=== PATIENT | female | born 1950 | race Caucasian/White ===

== ENCOUNTER 2021-11-14 17:48 | Emergency (ER) | payer OTHER, SELFPAY ==
--- NOTE | 2021-11-14 18:02 | DI.RAD.S_ITS ---
PROCEDURE: XR WRIST RT MIN 3V INDICATIONS: fall TECHNIQUE: 3 views of the wrist were acquired. COMPARISON: None. FINDINGS: Bones: Fracture of the distal radius with dorsal angulation. There is articular surface involvement. The 1st carpometacarpal joint and triscaphe joint have degenerative changes consistent with osteoarthritis. Soft tissues: No suspicious soft tissue calcifications. IMPRESSION: 1. Distal radius fracture with dorsal angulation and articular surface involvement. 2. Degenerative changes consistent with osteoarthritis. Dictated by: Delonte Nath M.D. on 11/14/2021 at 18:25 Approved by: Delonte Nath M.D. on 11/14/2021 at 18:27
[2021-11-14 18:44] LABS: COVID19 -Nasal RAPID Negative (Negative)
--- NOTE | 2021-11-14 18:48 | ED.GENADULT ---
HPI - General Adult General Chief complaint: Extremity Injury, Upper Stated complaint: Right Wrist Break Time Seen by Provider: 11/14/21 18:45 Source: patient Mode of arrival: Ambulatory History of Present Illness HPI narrative: 70-year-old woman with a history of hypothyroidism, anxiety, reflux who was trying to fix her curtain stepped on the package of her couch in the couch tipped over. She caught her fall with her right hand and has a deformity to the right wrist. She is neurovascularly intact. She states that she probably did bump her head but has no pain or contusion to the area. No neck pain and she is not on any blood thinners. She has no other complaints at this time. Related Data Home Medications Medication Instructions Recorded Confirmed ASPIRIN (Aspirin Low Dose) 81 mg Q DAY #0 11/21/09 LEVOTHYROXINE SODIUM (Synthroid) 137 mcg PO #0 11/21/09 [A MUSCLE RELAXER ] #0 11/21/09 [RELFLUX MED] Q DAY #0 11/21/09 [SIMVASTATIN] HS #0 11/21/09 Previous Rx's Medication Instructions Recorded oxycodone-acetaminophen 5 mg-325 1 tab PO Q6H PRN #14 tab 11/14/21 mg tablet (Percocet) Allergies Allergy/AdvReac Type Severity Reaction Status Date / Time Sulfa (Sulfonamide Allergy Verified 11/14/21 19:20 Antibiotics) Review of Systems Review of Systems Narrative: Pertinent positive and negative findings as per HPI Remainder of review of systems is otherwise unremarkable for Constitutional: Fevers, chills, weakness ENT: No sore throat, neck pain, ear pain CV: Chest pain, palpitations, Respiratory: Cough, wheeze, dyspnea GI: Nausea, vomiting, diarrhea, : Dysuria, hematuria, Patient History Medical History (Updated 11/14/21 @ 21:33 by Amarilys Joyce MD) Acid reflux Anxiety Hypothyroid Exam Initial Vital Signs Initial Vital Signs: General: Alert appropriate in no acute distress HEENT: Head is atraumatic, normocephalic. No neck tenderness to palpation Respiratory: Able to speak in full sentences, no obvious respiratory distress Skin: No obvious rashes, warm and dry Neurologic: Grossly intact no obvious asymmetries or abnormalities Psych: appropriate insight and affect, cooperative Extremity: Right wrist with obvious deformity she is neurovascularly intact distally. Full range of motion without tenderness at the elbow and shoulder. No other extremity abnormalities appreciated Procedures Orthopedic Fracture Reduction Right wrist: Time of procedure: 21:27 Side: right Fracture Reduction Location: radius Analgesia: hematoma block Technique: direct manipulation and traction/counter-traction Post Reduction X-rays Demonstrate: acceptable reduction Post-reduction neuro exam: other (Fingers numb after the hematoma block. She is able to move all fingers) Post-reduction vascular exam: intact Splint Applied: Yes Patient Tolerated Procedure: Well Orthopedic Splinting/Casting Right wrist: Time of procedure: 21:28 Side: right Upper Extremity Injury Location: wrist Upper Extremity Immobilizer: volar splint Other Orthopedic Equipment: other (Sling) Post splinting neuro exam: other (Numb from anesthetic) Post splinting vascular exam: intact Placed by: Provider Course Orders Ordered: ED Orders 11/14/21 18:02 XR wrist RT min 3V Stat 11/14/21 18:19 COVID19 -Nasal RAPID/Pre-Proc Stat 11/14/21 20:58 XR wrist RT 2V Stat Discontinued Medications Ibuprofen (Ibuprofen 400 Mg Tablet) 400 mg PO NOW ONE Stop: 11/14/21 19:11 Last Admin: 11/14/21 19:21 Dose: 400 mg Documented by: IRASEMA Lidocaine/Sodium Bicarbonate (Lido 1%/Sod Bicarb 8.4% (10ml) 10 Ml Syringe) 10 ml INJ NOW ONE Stop: 11/14/21 19:11 Last Admin: 11/14/21 19:21 Dose: 10 ml Documented by: IRASEMA Oxycodone/Acetaminophen (Oxycodone/Acetaminophen 5/325 Tablet) 1 tab PO NOW ONE Stop: 11/14/21 19:11 Last Admin: 11/14/21 19:21 Dose: 1 tab Documented by: IRASEMA Oxycodone/Acetaminophen (Oxycodone/Apap 5/325 Prepack) 1 bottle MISC SEEINSTR ONE Stop: 11/14/21 19:11 Last Admin: 11/14/21 19:21 Dose: 1 bottle Documented by: IRASEMA Medical Decision Making Lab Data Labs: Lab Results 11/14/21 Range/Units 18:19 SARS-CoV-2 (PCR) Negative (Negative) Imaging Data Pre and post reduction wrist x-ray: Radiologist's Impression: FINDINGS:? ? Bones:? Fracture of the distal radius with dorsal angulation.? There is articular surface involvement.? The 1st carpometacarpal joint and triscaphe joint have degenerative changes consistent with osteoarthritis. ? Soft tissues:? No suspicious soft tissue calcifications.? ? IMPRESSION:? ? 1. Distal radius fracture with dorsal angulation and articular surface involvement. 2. Degenerative changes consistent with osteoarthritis.? ? Dictated by: Delonte Nath M.D. on 11/14/2021 at 18:25 ? ? FINDINGS:? ? Bones:? There is an external splint limiting evaluation of fine bony detail.? There is improved alignment status post closed reduction of the previously visualized comminuted distal radius fracture extending to the radiocarpal and distal radioulnar joints.? There is decreased but persistent minimal dorsal angulation.? Moderate degeneration demonstrated at the 1st carpometacarpal and triscaphe joints. ? Soft tissues:? External splint limits evaluation of the soft tissues. ? IMPRESSION:? ? 1. Improved alignment status post closed reduction of comminuted distal radius intra-articular fracture.? ? ? Dictated by: Taurus Mosquera M.D. on 11/14/2021 at 21:19 ? ? MDM Narrative Medical decision making narrative: 70-year-old woman who was adjusting her blinds standing on the back the couch, couch to [place], she landed on her right wrist and suffered distal radius fracture that has been partially reduced and splinted. She will need orthopedic follow-up and likely will need surgical intervention. All of this is explain to her. She is placed in a splint. Pain was nicely controlled after the hematoma block. Likely will need narcotic for pain control for the 1st couple of days. She is able to take ibuprofen. She is a [facility] patient and would like to follow-up with her [facility] orthopedic doctor in [place]. She is given a disc to with her pre and postreduction films. At this point she is safe for discharge Discharge Plan Departure Patient Disposition: Home Clinical Impression: Fracture of wrist Instructions: DI for Distal Radius Fracture Activity Restrictions/Additional Instructions: Thank you for coming in today You did break your wrist. We use some local anesthetic at the fracture site itself and then adjusted the bones. The fracture looks better but still will need follow-up with an orthopedic surgeon. You may need surgery on this. Please keep the splint in place. The sling can be helpful with pain control and immobilization as well. Using 400 mg of ibuprofen (2 [id number] pills) and 1 Tylenol every 6 hours can be very helpful in controlling pain. For severe pain using 400 mg of ibuprofen and 1 Percocet is helpful. Percocet is a narcotic and will cause constipation. Please make sure you are not driving or making important decisions while taking this. It makes sense to add extra water as well as a stool softener or extra fiber while you are using this medication as well You are welcome to follow-up with the orthopedic doctor of choice. You will need to call and schedule an appointment and explained that you have a comminuted distal radius intra-articular fracture. If you prefer to follow-up with 1 of her local physicians, please contact [facility] at [phone]. If you have worsening pain or new symptoms, please feel free to return to the emergency department Prescriptions: New oxycodone-acetaminophen [Percocet] 5-325 mg tablet 1 tab PO Q6H PRN (Reason: pain) Qty: 14 0RF No Action [RELFLUX MED] Q DAY Qty: 0 0RF [SIMVASTATIN] HS Qty: 0 0RF ASPIRIN (Aspirin Low Dose) 81 mg Q DAY Qty: 0 0RF LEVOTHYROXINE SODIUM (Synthroid) 137 mcg PO Qty: 0 0RF [A MUSCLE RELAXER ] Qty: 0 0RF Referrals: Georgiana Orozco MD [Primary Care Provider] -
[2021-11-14] MEDS: IBUPROFEN 400 MG TABLET PO (19:21)
[2021-11-14] MEDS: OXYCODONE/ACETAMINOPHEN 5/325 TABLET 1 TAB PO (19:21)
[2021-11-14] MEDS: LIDO 1%/SOD BICARB 8.4% (10ML) 10 ML SYRINGE INJ (19:21)
[2021-11-14] MEDS: OXYCODONE/APAP 5/325 PREPACK 1 BOTTLE MISC (19:21)
--- NOTE | 2021-11-14 20:58 | DI.RAD.S_ITS ---
PROCEDURE: XR WRIST RT 2V INDICATIONS: post reduction TECHNIQUE: 2 views of the wrist were acquired. COMPARISON: [facility], CR, XR WRIST RT MIN 3V, 11/14/2021, 17:49. FINDINGS: Bones: There is an external splint limiting evaluation of fine bony detail. There is improved alignment status post closed reduction of the previously visualized comminuted distal radius fracture extending to the radiocarpal and distal radioulnar joints. There is decreased but persistent minimal dorsal angulation. Moderate degeneration demonstrated at the 1st carpometacarpal and triscaphe joints. Soft tissues: External splint limits evaluation of the soft tissues. IMPRESSION: 1. Improved alignment status post closed reduction of comminuted distal radius intra-articular fracture. Dictated by: Taurus Mosquera M.D. on 11/14/2021 at 21:19 Approved by: Taurus Mosquera M.D. on 11/14/2021 at 21:21
[2021-11-14 21:49] VITALS: BP 142/75; PULSE 77; RESP 16; O2SAT 97
== END 2021-11-14 21:50 | disposition home or self-care (01) ==
PROVIDERS: Emergency Provider Emergency Medicine; PCP Family Medicine
DX: S52.501A Unspecified fracture of the lower end of right radius, initial encounter for closed fracture (principal); W18.09XA Striking against other object with subsequent fall, initial encounter; Z20.822 Contact with and (suspected) exposure to COVID-19
CPT/HCPCS: 25605; 73100; 73110; 87635; 99283; 99284; C9803